=== PATIENT | female | born 1970 | race Caucasian/White ===

== ENCOUNTER 2024-01-27 08:38 | Inpatient (IN) | payer BC ==
[~2024-01-27] VITALS: Ht 160 cm; Wt 88.1 kg
[2024-01-27] MEDS ORDERED: mag hydrox/Alum hydrox/simeth 30ml oral suspension PO PRN (12:30)
[2024-01-27] MEDS ORDERED: loperamide 2mg capsule PO PRN (12:30)
[2024-01-27] MEDS ORDERED: acetaminophen 325mg tablet PO PRN (12:30)
[2024-01-27] MEDS ORDERED: magnesium hydroxide 30ml (MOM) UD suspension PO PRN (12:30)
[2024-01-27 14:07] VITALS: BP 130/82; PULSE 77; RESP 14; TEMP 97.8; O2SAT 99
[2024-01-27] MEDS ORDERED: FAMO20TA8 PO (16:06)
[2024-01-27] MEDS ORDERED: IBUP-1986 PO (16:06)
[2024-01-27] MEDS ORDERED: ONDA-243 PO (16:06)
[2024-01-27] MEDS ORDERED: DEXT1TAB PO (16:06)
[2024-01-27] MEDS ORDERED: OMEP20CA16 PO (16:06)
[2024-01-27] MEDS ORDERED: CETI10TA14 PO (16:06)
[2024-01-27 16:11] VITALS: RESP 14
[2024-01-27] MEDS ORDERED: QUET300T91 PO (16:25)
[2024-01-27 19:00] VITALS: RESP 16; O2SAT 97
[2024-01-27 20:00] VITALS: BP 109/77; PULSE 77; RESP 16; TEMP 96.9; O2SAT 97
[2024-01-27] MEDS: QUETIAPINE 150 MG TAB.SR.24H PO SCH (20:58)
[2024-01-28 07:00] VITALS: BP 101/57; PULSE 78; RESP 16; TEMP 97.2; O2SAT 99
[2024-01-28 07:30] VITALS: RESP 16
[2024-01-28] MEDS: venlafaxine XR 37.5mg cap (Q24H) PO SCH (08:23)
[2024-01-28] MEDS: ibuprofen tablet 400 MG TABLET PO PRN (08:23)
[2024-01-28 09:04] LABS: CHOLESTEROL 218 MG/DL (0-200); HDL CHOLESTEROL 54 MG/DL (35-60); LDL CHOLESTEROL 139 MG/DL (50-100); TRIGLYCERIDES 87 MG/DL (20-135)
[2024-01-28 09:29] LABS: HEMOGLOBIN A1C 5.3 % (4.5-6.2)
[2024-01-28] MEDS: SUMAtriptan 25 MG tablet PO ONE (16:27)
[2024-01-28 19:00] VITALS: RESP 16
[2024-01-28 20:00] VITALS: RESP 16
[2024-01-29 07:00] VITALS: RESP 14; O2SAT 94
[2024-01-29 08:00] VITALS: BP 92/64; PULSE 62; RESP 14; TEMP 97.3; O2SAT 94
[2024-01-29] MEDS: aspirin/acetaminophen/caffeine tablet PO PRN (16:43)
[2024-01-29] MEDS: SUMAtriptan 25 MG tablet PO PRN (16:44)
[2024-01-29 19:26] VITALS: BP 131/77; PULSE 75; RESP 16; TEMP 97.1; O2SAT 98
[2024-01-29 20:00] VITALS: RESP 16; O2SAT 98
[2024-01-30 07:00] VITALS: RESP 16; O2SAT 94
[2024-01-30 08:00] VITALS: BP 96/75; PULSE 111; RESP 16; TEMP 97.2; O2SAT 94
[2024-01-30] MEDS: venlafaxine XR 37.5mg cap (Q24H) PO SCH (08:10)
[2024-01-30] MEDS: ondansetron 4mg rapidly disintigrating tab PO ONE (16:49)
[2024-01-30] MEDS ORDERED: ondansetron 4mg rapidly disintigrating tab PO PRN (19:10)
[2024-01-30] MEDS: pantoprazole 40mg Tablet.DR PO ONE (19:39)
[2024-01-30 20:00] VITALS: BP 100/64; PULSE 80; RESP 16; TEMP 97.7; O2SAT 97
[2024-01-30] MEDS: olanzapine 10mg tablet PO SCH (20:06)
[2024-01-30] MEDS: diphenhydrAMINE 25mg capsule PO SCH (20:06)
[2024-01-30] MEDS ORDERED: QUEtiapine 25mg tablet PO SCH ×2 (21:00→22:24)
[2024-01-30] MEDS ORDERED: quetiapine 100mg tablet PO SCH (22:52)
[2024-01-30] MEDS: quetiapine 100mg tablet PO SCH (23:01)
[2024-01-30] MEDS: QUEtiapine 25mg tablet PO SCH (23:01)
[2024-01-31] MEDS: multivitamins, therapeutics tablet PO SCH (07:15)
[2024-01-31] MEDS: pantoprazole 40mg Tablet.DR PO SCH (07:15)
[2024-01-31 07:30] VITALS: RESP 18; O2SAT 95
[2024-01-31 07:51] LABS: BASOPHILS % (AUTO) 0.3 % (0-1); EOSINOPHILS % (AUTO) 0.5 % (0-6); HEMATOCRIT 39.2 % (35.0-45.0); HEMOGLOBIN 13.5 g/dl (12.0-16.0); LYMPHOCYTES # (AUTO) 0.9 X10'3 (1.1-4.8); LYMPHOCYTES % (AUTO) 13.1 % (21-51); MEAN CORPUSCULAR HEMOGLOBIN 29.8 PG (27.0-31.0); MEAN CORPUSCULAR HGB CONC 34.4 g/dL (33.0-36.5); MEAN CORPUSCULAR VOLUME 86.6 FL (78-98); MEAN PLATELET VOLUME 8.2 FL (7.4-10.4); MONOCYTES # (AUTO) 0.3 X10'3 (0-0.9); MONOCYTES % (AUTO) 4.3 % (2-12); NEUTROPHILS # (AUTO) 5.9 X10'3 (1.8-7.7); NEUTROPHILS % (AUTO) 81.8 % (42-75); PLATELET COUNT 233 X10'3 (140-440); RED BLOOD COUNT 4.52 X10'6 (4.20-5.60); RED CELL DISTRIBUTION WIDTH 14.7 % (11.5-14.5); WHITE BLOOD COUNT 7.2 X10'3 (4.5-11.0)
[2024-01-31 07:56] LABS: APTT 25 SECONDS (22-32); PROTHROMBIN TIME 10.9 SECONDS (9.0-12.0)
[2024-01-31 08:00] VITALS: BP 92/65; PULSE 90; RESP 14; TEMP 97.5; O2SAT 95
[2024-01-31 08:23] LABS: CHLORIDE 103 MMOL/L (99-107); SODIUM 136 MMOL/L (135-145)
[2024-01-31 08:45] LABS: ALANINE AMINOTRANSFERASE 19 U/L (12-78); ALBUMIN/GLOBULIN RATIO 0.7 (1.1-1.5); ALKALINE PHOSPHATASE 97 IU/L (46-116); ANION GAP 8 (8-16); ASPARTATE AMINO TRANSFERASE 14 U/L (10-37); BILIRUBIN,TOTAL 0.5 MG/DL (0.1-1.0); BLOOD UREA NITROGEN 20 MG/DL (7-18); BUN/CREATININE RATIO 24.1 (10.0-20.0); CALCIUM 8.3 MG/DL (8.5-10.1); CREATININE 0.83 MG/DL (0.40-0.90); FREE T4 (FREE THYROXINE) 0.87 NG/DL (0.73-1.40); GLUCOSE 103 MG/DL (70-104); THYROID STIMULATING HORMONE 0.12 ulU/ml (0.34-4.50); TOTAL CARBON DIOXIDE 24.6 MMOL/L (24-32); TOTAL PROTEIN 7.1 G/DL (6.4-8.2); eCRCL 63 ML/MIN; eGFR 71 ML/MIN
[2024-01-31] MEDS: lactose-reduced food (Ensure Enlive) - 237ml bottle PO SCH (13:08)
[2024-01-31 19:00] VITALS: RESP 20; O2SAT 94
[2024-01-31 19:57] VITALS: BP 109/74; PULSE 103; RESP 20; TEMP 98; O2SAT 94
[2024-01-31] MEDS: OLANZAPINE 5 MG TABLET PO SCH (20:28)
[2024-01-31] MEDS: mirtazapine 15mg tablet PO SCH (20:28)
[2024-01-31] MEDS ORDERED: quetiapine 100mg tablet PO SCH (21:00)
[2024-02-01 07:00] VITALS: BP 90/55; PULSE 60; RESP 16; TEMP 97.8; O2SAT 96
[2024-02-01] MEDS: acetaminophen 325mg tablet PO PRN (13:33)
[2024-02-01 19:00] VITALS: BP 90/55; PULSE 110; RESP 14; RESP 16; TEMP 98.3; O2SAT 94
[2024-02-01] MEDS: mirtazapine 15mg tablet PO ONE (23:23)
[2024-02-02 07:00] VITALS: RESP 16; O2SAT 94
[2024-02-02 08:00] VITALS: BP 96/60; PULSE 62; RESP 16; TEMP 98.2; O2SAT 94
[2024-02-02 19:00] VITALS: RESP 14; O2SAT 94
[2024-02-02 19:49] VITALS: BP 98/69; PULSE 99; RESP 14; TEMP 97.7; O2SAT 94
[2024-02-03 07:00] VITALS: RESP 14; O2SAT 93
[2024-02-03 08:00] VITALS: BP 100/64; PULSE 64; RESP 14; TEMP 98.9; O2SAT 93
[2024-02-03 19:00] VITALS: RESP 16; O2SAT 94
[2024-02-03 19:48] VITALS: BP 117/87; PULSE 88; RESP 16; TEMP 97.9; O2SAT 99
[2024-02-03] MEDS: mirtazapine 15mg tablet PO ONE (22:52)
[2024-02-04 07:00] VITALS: RESP 12; O2SAT 93
[2024-02-04 08:00] VITALS: BP 93/58; PULSE 68; RESP 12; TEMP 98.5; O2SAT 93
[2024-02-04] MEDS ORDERED: VENL37.59 PO (09:07)
[2024-02-04] MEDS ORDERED: MULT-25 PO (09:07)
[2024-02-04] MEDS ORDERED: OLAN5TAB75 PO (09:07)
[2024-02-04] MEDS ORDERED: SUMA25TA9 PO (09:07)
[2024-02-04] MEDS ORDERED: MIRT-87 PO (09:07)
[2024-02-04] MEDS ORDERED: PANT40TA54 PO (09:07)
== END 2024-02-04 10:33 | disposition home or self-care (01) | DRG 885 ==
LOC: ADULT MH 14:04
PROVIDERS: ADMIT Registered Nurse; ATTEND Registered Nurse
DX: F33.3 Major depressive disorder, recurrent, severe with psychotic symptoms (principal); F43.12 Post-traumatic stress disorder, chronic; E78.5 Hyperlipidemia, unspecified; G43.809 Other migraine, not intractable, without status migrainosus; F40.00 Agoraphobia, unspecified; Z88.0 Allergy status to penicillin; Z88.5 Allergy status to narcotic agent
CPT/HCPCS: 36415; 80053; 80061; 83036; 84439; 84443; 85025; 85610; 85730; 87081; 99285; Q0163